=== PATIENT | male | born 1955 | race Caucasian/White ===

== ENCOUNTER 2016-09-19 11:00 | Emergency (ER) | payer MEDICAID ==
[~2016-09-19] VITALS: Ht 193 cm; Wt 87.0 kg
[~2016-09-19 11:00] MED LIST: ALPR.5 PO; DICL75TA PO; FINA5TAB2 PO; NORC5TAB PO; PRIL20CA9 PO; SERT-129 PO; TAMS5CAP PO
[2016-09-19 11:02] VITALS: BP 150/89; PULSE 86; RESP 18; TEMP 98.9; O2SAT 98
--- NOTE | 2016-09-19 11:09 | PD ---
Physical Exam Time Seen by Provider: 11:08 Narrative Patient presents to the ED for nausea, vomiting and diarrhea for 3 days. Also c /o lower abdominal pain and chills. Denies fever. VSS. Patient awaiting bed placement. Data Data Last Documented VS Vital Signs Date Time Temp Pulse Resp B/P Pulse Ox O2 Delivery O2 Flow Rate FiO2 09/19/16 11:02 98.9 86 18 150/89 98 Room Air MDM Supervised Visit with KAHLIL: Virginia Templeton Sep 19, 2016 11:09
--- NOTE | 2016-09-19 11:57 | PD ---
HPI . Lower abdominal pain Chief Complaint: Complaint Time Seen by Provider: 11:45 Travel History International Travel<30 days: No Contact w/Intl Traveler<30days: No Traveled to known affect area: No History of Present Illness HPI Patient presents with chief complaint of lower abdominal pain. Onset of symptoms was about 4 days ago. He states that he had nausea and has forced himself to vomit. That did not improve his symptoms. He states he has had some loose stools as well. However, that has resolved. He now comes in complaining with lower abdominal pain. No urinary tract symptoms such as dysuria, frequency or urgency. No known fever. He does endorse a poor appetite. He states that his abdomen does not feel bloated. He describes his pain as a bubbling sensation. He rates his pain as 10/10. No known exacerbating or relieving factors. 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) Endocrine: No GERD: Yes Genitourinary: Yes (ENLARGED PROSTATE) Headaches: Yes Hepatitis: No Hiatal Hernia: No Hypertension: Yes Immune Disorder: No Musculoskeletal: Yes (CHRONIC PAIN CERVICAL, RIGHT , LIMITED ROM LEFT ARM, LEFT TORN ROTATOR CUFF) Neurologic: Yes (BAD HEADACHE) Psychiatric: Yes (DEPRESSION/ANXIETY) Reproductive: No Respiratory: No Past Surgical History Body Medical Devices: NONE Social History Alcohol Use: No Tobacco Use: Yes (2 CIGARETTES PER DAY) Substance Use: No Allergies-Medications (Allergen,Severity, Reaction): Coded Allergies: Tylenol/Codeine (Verified Adverse Reaction, Unknown, Nausea/Vomiting, 01/24) Reported Meds & Prescriptions Reported Meds & Active Scripts Active Flomax (Tamsulosin HCl) 0.4 Mg Cap 0.8 Mg PO HS Finasteride 5 Mg Tab 5 Mg PO DAILY Do not crush. Reported Xanax (Alprazolam) 0.5 Mg Tab 0.5 Mg PO QID PRN Sertraline (Sertraline HCl) 100 Mg Tab 100 Mg PO DAILY Prilosec (Omeprazole) 20 Mg Cap 20 Mg PO DAILY Diclofenac Sodium DR (Diclofenac Sodium) 75 Mg Tabdr 75 Mg PO BID [place] (Hydrocodone-Acetaminophen) 5-325 mg Tab 1 Tab PO Q4H PRN Review of Systems Except as stated in HPI: all other systems reviewed are Neg General / Constitutional: No: Fever, Chills Gastrointestinal: Positive: Nausea, Vomiting, Diarrhea, Abdominal Pain Genitourinary: No: Urgency, Frequency, Dysuria Physical Exam Narrative GENERAL: Awake and alert and in no acute distress. SKIN: Warm and dry. HEAD: Atraumatic. Normocephalic. EYES: Pupils equal and round. Sclera are anicteric. ENT: No nasal bleeding or discharge. Mucous membranes pink and moist. NECK: Trachea midline. Neck is supple. CARDIOVASCULAR: Regular rate and rhythm. Heart sounds are normal. RESPIRATORY: No accessory muscle use. Lungs are clear with full air movement throughout. GASTROINTESTINAL: Abdomen soft, non-tender, nondistended. Bowel sounds present. MUSCULOSKELETAL: No obvious deformities. No edema. NEUROLOGICAL: Awake and alert. No obvious cranial nerve deficits. Motor grossly within normal limits. Normal speech. PSYCHIATRIC: Appropriate mood and affect; insight and judgment normal. Data Data Last Documented VS Vital Signs Date Time Temp Pulse Resp B/P Pulse Ox O2 Delivery O2 Flow Rate FiO2 09/19/16 11:02 98.9 86 18 150/89 98 Room Air Orders Complete Blood Count With Diff (09/19/16 11:50) Comprehensive Metabolic Panel (09/19/16 11:50) Lipase (09/19/16 11:50) Urinalysis - C+S If Indicated (09/19/16 11:50) Ct Abd/Pel W Iv Contrast(Rout) (09/19/16 11:50) Iv Access Insert/Monitor (09/19/16 11:50) Sodium Chloride 0.9% Flush (Ns Flush) (09/19/16 12:00) Iohexol 350 Inj (Omnipaque 350 Inj) (09/19/16 13:17) Labs Laboratory Tests Test 09/19/16 12:05 White Blood Count 13.2 TH/MM3 Red Blood Count 4.60 MIL/MM3 Hemoglobin 14.1 GM/DL Hematocrit 42.3 % Mean Corpuscular Volume 92.0 FL Mean Corpuscular Hemoglobin 30.6 PG Mean Corpuscular Hemoglobin 33.3 % Concent Red Cell Distribution Width 13.1 % Platelet Count 261 TH/MM3 Mean Platelet Volume 7.8 FL Neutrophils (%) (Auto) 85.3 % Lymphocytes (%) (Auto) 10.8 % Monocytes (%) (Auto) 3.1 % Eosinophils (%) (Auto) 0.0 % Basophils (%) (Auto) 0.8 % Neutrophils # (Auto) 11.3 TH/MM3 Lymphocytes # (Auto) 1.4 TH/MM3 Monocytes # (Auto) 0.4 TH/MM3 Eosinophils # (Auto) 0.0 TH/MM3 Basophils # (Auto) 0.1 TH/MM3 CBC Comment DIFF FINAL Differential Comment Urine Color LIGHT-YELLOW Urine Turbidity CLEAR Urine pH 7.0 Urine Specific [place] 1.004 Urine Protein NEG mg/dL Urine Glucose (UA) NEG mg/dL Urine Ketones NEG mg/dL Urine Occult Blood NEG Urine Nitrite NEG Urine Bilirubin NEG Urine Urobilinogen LESS THAN 2.0 MG/DL Urine Leukocyte Esterase MOD Urine RBC LESS THAN 1 /hpf Urine WBC 2 /hpf Urine Bacteria RARE /hpf Urine Mucus FEW /lpf Microscopic Urinalysis Comment CULT NOT INDICATED Sodium Level 135 MEQ/L Potassium Level 3.4 MEQ/L Chloride Level 104 MEQ/L Carbon Dioxide Level 21.8 MEQ/L Anion Gap 9 MEQ/L Blood Urea Nitrogen 8 MG/DL Creatinine 0.75 MG/DL Estimat Glomerular Filtration 107 ML/MIN Rate Random Glucose 109 MG/DL Calcium Level 8.9 MG/DL Total Bilirubin 0.3 MG/DL Aspartate Amino Transf 19 U/L (AST/SGOT) Alanine Aminotransferase 19 U/L (ALT/SGPT) Alkaline Phosphatase 83 U/L Total Protein 6.8 GM/DL Albumin 3.4 GM/DL Lipase 66 U/L [facility] Medical Decision Making Medical Screen Exam Complete: Yes Emergency Medical Condition: Yes Differential Diagnosis Differential diagnosis of abdominal pain includes but is not limited to gastritis, pancreatitis, hepatitis, gastroenteritis, gallbladder disease, constipation, urinary retention, UTI, peptic ulcer disease, diverticulitis or appendicitis Narrative Course Patient presents complaining of lower abdominal pain. He has a benign exam. He reports that his symptoms started with nausea and diarrhea. Those symptoms have resolved. CBC & BMP Diagram 09/19/16 12:05 UA>>mod LE, rare bact CT: 1. Diffuse enlargement of prostate gland. 2. Otherwise, unremarkable exam for patient's age. This patient is stable for discharge to home and treatment as an outpatient. Diagnosis Primary Impression: Abdominal pain Qualified Code: R10.30 - Lower abdominal pain Additional Impression: Urinary tract infection Qualified Code: N39.0 - Urinary tract infection without hematuria, site unspecified Patient Instructions: Abdominal Pain (ED), General Instructions, Urinary Tract Infection in Children (GEN) Med/Other Pt SpecificInfo: Prescription(s) given Scripts Ondansetron (Zofran)4 Mg Tab4 Mg PO Q6HR PRN (NAUSEA OR VOMITING) #10 TAB Ref 0 Prov:Kenzie Nicole MD 09/19/16 Nitrofurantoin Monohydrate Macrocrystals (Macrobid)100 Mg [id number] Mg PO BID 7 Days Ref 0 Prov:Kenzie Nicole MD 09/19/16 Disposition: 01 DISCHARGE HOME Condition: Stable Kenzie Nicole MD Sep 19, 2016 11:57
[2016-09-19] MEDS ORDERED: SODIUM CHLORIDE 0.9% FLUSH 10 ML FLUSH IV FLUSH PRN (12:00)
[2016-09-19 12:17] LABS: AUTOMATED NEUTROPHIL # 11.3 TH/MM3 (1.8-7.7); BASOPHIL # 0.1 TH/MM3 (0-0.2); BASOPHIL % 0.8 % (0.0-2.0); HEMATOCRIT 42.3 % (39.0-51.0); HEMO FLAGS DIFF FINAL; LYMPH % 10.8 % (9.0-44.0); LYMPHOCYTE # 1.4 TH/MM3 (1.0-4.8); MEAN CORPUSCULAR HEMOGLOBIN 30.6 PG (27.0-34.0); MEAN CORPUSCULAR HGB CONC 33.3 % (32.0-36.0); MONO % 3.1 % (0.0-8.0); NEUT % 85.3 % (16.0-70.0); PLATELET COUNT 261 TH/MM3 (150-450); RED CELL DISTRIBUTION WIDTH 13.1 % (11.6-17.2); WHITE BLOOD COUNT 13.2 TH/MM3 (4.0-11.0)
[2016-09-19 12:34] LABS: BACTERIA, URINE RARE /hpf; BLOOD, URINE NEG (NEG); COMMENT (UR) CULT NOT INDICATED; CULTURE IF INDICATED CULT NOT INDICATED; GLUCOSE,URINE NEG (NEG); KETONE, URINE NEG (NEG); MUCUS URINE FEW /lpf (OCC); NITRITE,URINE NEG (NEG); URINE COLOR LIGHT-YELLOW (YELLW/STRAW)
[2016-09-19 12:36] LABS: ALT (GPT) 19 U/L (12-78); ANION GAP 9 MEQ/L (5-15); AST (GOT) 19 U/L (15-37); BICARBONATE 21.8 MEQ/L (21.0-32.0); BLOOD UREA NITROGEN 8 MG/DL (7-18); CHLORIDE 104 MEQ/L (98-107); GLOMERULAR FILTRATION RATE 107 ML/MIN (>89); POTASSIUM 3.4 MEQ/L (3.5-5.1); SODIUM (NA) 135 MEQ/L (136-145)
[2016-09-19 12:39] LABS: ALKALINE PHOSPHATASE 83 U/L (45-117); TOTAL BILIRUBIN ADULT 0.3 MG/DL (0.2-1.0)
[2016-09-19] MEDS ORDERED: IOHEXOL 350 MG/ML 10 ML VIAL (for RAD DIAG) IV ONE (13:17)
--- NOTE | 2016-09-19 13:35 | RADRPT ---
EXAM DATE/TIME: 09/19/2016 13:09 [place] COMPARISON: No previous studies available for comparison. INDICATIONS : Abdominal pain that radiates to the back. Nausea, vomiting and diarrhea for three days. IV CONTRAST: 86 cc Omnipaque 350 (iohexol) IV ORAL CONTRAST: No oral contrast ingested. RADIATION DOSE: 9.96 CTDIvol (mGy) MEDICAL HISTORY : Hypertension. SURGICAL HISTORY : None. ENCOUNTER: Initial ACUITY: 3 days PAIN SCALE: 4/10 LOCATION: Bilateral lower quadrant TECHNIQUE: Volumetric scanning of the abdomen and pelvis was performed. Using automated exposure control and ad justment of the mA and/or kV according to patient size, radiation dose was kept as low as reasonably achievable to obtain optimal diagnostic quality images. DICOM format image data is available electro nically for review and comparison. FINDINGS: LOWER LUNGS: The visualized lower lungs are clear. LIVER: Homogeneous density without lesion. There is no dilation of the biliary tree. No calcified gallston es. SPLEEN: Normal size without lesion. PANCREAS: Within normal limits. KIDNEYS: Normal in size and shape. There is no mass, stone or hydronephrosis. 5 mm cyst midpole left kidney. ADRENAL GLANDS: Within normal limits. VASCULAR: There is no aortic aneurysm. Atherosclerotic changes. BOWEL/MESENTERY: The stomach, small bowel, and colon demonstrate no acute abnormality. There is no free intraperitone al air or fluid. The appendix is unremarkable. No inflammatory changes are seen. There is stool throu ghout the colon. ABDOMINAL WALL: Within normal limits. RETROPERITONEUM: There is no lymphadenopathy. BLADDER: No wall thickening or mass. REPRODUCTIVE: The prostate gland measures 6.8 cm. INGUINAL: There is no lymphadenopathy or hernia. MUSCULOSKELETAL: Within normal limits for patient age. CONCLUSION: 1. Diffuse enlargement of prostate gland. 2. Otherwise, unremarkable exam for patient's age. Raúl Rosado MD on September 19, 2016 at 13:30 Board Certified Radiologist. This report was verified electronically.
[2016-09-19] MEDS ORDERED: MACR100C2 PO (13:41)
[2016-09-19] MEDS ORDERED: ZOFR4TAB PO (13:41)
[2016-09-19] MEDS ORDERED: cefTRIAXone INJ 1,000 MG in SODIUM CHLORIDE 0.9% INJ 25 ML IV ONE (13:45)
[2016-09-19 14:07] VITALS: BP 134/79
== END 2016-09-19 14:17 | disposition home or self-care (01) ==
LOC: NEPD 11:00
DX: R10.30 Lower abdominal pain, unspecified (principal); N39.0 Urinary tract infection, site not specified; N40.1 Benign prostatic hyperplasia with lower urinary tract symptoms; F41.8 Other specified anxiety disorders; I10 Essential (primary) hypertension; M19.90 Unspecified osteoarthritis, unspecified site; Z72.0 Tobacco use
CPT/HCPCS: 74177; 80053; 81001; 83690; 85025; 96374; 99285; J0696; Q9967